=== PATIENT | female | born 2000 | race Caucasian/White ===

== ENCOUNTER 2021-08-13 18:23 | Emergency (ER) | payer OTHER ==
[~2021-08-13] VITALS: Ht 165.1 cm; Wt 82.5 kg
[2021-08-13 19:15] VITALS: BP 119/72
[2021-08-13] MEDS ORDERED: IBUPROFEN 600 MG TABLET PO ONE (19:15)
[2021-08-13] MEDS ORDERED: ACETAMINOPHEN 500 MG TABLET PO ONE (19:15)
== END 2021-08-13 19:40 | disposition home or self-care (01) ==
LOC: EMS 18:26
DX: S06.0X9A Concussion with loss of consciousness of unspecified duration, initial encounter (principal); W22.01XA Walked into wall, initial encounter; Y93.89 Activity, other specified; Y92.89 Other specified places as the place of occurrence of the external cause; Y99.8 Other external cause status
CPT/HCPCS: 99283